=== PATIENT | female | born 1940 | race Two or more races ===

== ENCOUNTER → 2016-05-12 | Outpatient (CLI) | payer OTHER ==
[~2016-05-12] MED LIST: ATEN-60 OR; OMEP20TA85 OR
== END | disposition home or self-care (01) ==
LOC: LAB 12:00
PROVIDERS: ATTEND Obstetrics & Gynecology
DX: N85.00 Endometrial hyperplasia, unspecified (principal)

== ENCOUNTER → 2016-10-31 | Outpatient (CLI) | payer OTHER ==
[2016-10-31 08:58] LABS: Basophils # (auto) 0 uL; Basophils % (auto) 0.4 % (0.0-2.0); CONDITION Y; Eosinophils # (auto) 0.2 uL; Eosinophils % (auto) 2.3 % (0.0-7.0); Hematocrit 37.3 % (36.0-46.0); Hemoglobin 12.6 g/dL (12.2-16.2); Lymphocytes # (auto) 2.4 uL; Lymphocytes % (auto) 27.8 % (10.0-50.0); Mean Corpuscular Hemoglobin 28.8 pg (28.0-32.0); Mean Corpuscular Hgb Conc. 33.8 g/dL (32.0-36.0); Mean Corpuscular Volume 85.2 fL (80.0-100.0); Mean Platelet Volume 7.7 fL (7.4-10.4); Monocytes # (auto) 0.6 uL; Monocytes % (auto) 6.6 % (0.0-12.0); Neutrophils # (auto) 5.5 uL; Neutrophils % (auto) 62.9 % (37.0-80.0); Platelet Count (auto) 350 10^3/uL (140-450); Red Cell Distribution Width 13.6 % (11.6-16.0); White Blood Cell 8.8 10^3/uL (4.4-10.8)
[2016-10-31 09:06] LABS: Urine Bilirubin Negative (Negative); Urine Blood Negative /uL (Negative); Urine Color Yellow (Yellow); Urine Glucose Normal (Normal); Urine Ketone Negative (Negative); Urine Mucus FEW (None Seen); Urine Nitrite Negative (Negative); Urine RBC <1 /hpf (0 - 4); Urine Squamous Epithelial Cell FEW /hpf (<5); Urine Urobilinogen Normal (Negative); Urine pH 6.5 (5.0-8.0)
[2016-10-31 09:10] LABS: INR 0.92 (0.9-1.15); Partial Thromboplastin Time 26.8 sec (22.64-33.71)
[2016-10-31 09:33] LABS: Albumin 3.2 g/dL (3.4-5.0); BUN/Creatinine Ratio 20.7; Bilirubin, Total 0.3 mg/dL (0.2-1.0); Calcium 8.8 mg/dL (8.5-10.1); Potassium 4.3 mmol/L (3.5-5.1); Total Protein 7.5 g/dL (6.4-8.2)
== END | disposition home or self-care (01) ==
LOC: LAB 08:21
PROVIDERS: ATTEND Family Medicine
DX: Z01.810 Encounter for preprocedural cardiovascular examination (principal)
CPT/HCPCS: 36415; 80053; 81001; 85025; 85610; 85730

== ENCOUNTER 2017-01-13 06:09 | Day surgery (SDC) | payer OTHER ==
[2017-01-10 11:38] LABS: Basophils # (auto) 0.1 uL; Basophils % (auto) 0.8 % (0.0-2.0); Eosinophils # (auto) 0.2 uL; Eosinophils % (auto) 1.5 % (0.0-7.0); Hematocrit 38.7 % (36.0-46.0); Hemoglobin 13.1 g/dL (12.2-16.2); Lymphocytes # (auto) 2.6 uL; Mean Corpuscular Hemoglobin 29.8 pg (28.0-32.0); Mean Corpuscular Hgb Conc. 33.7 g/dL (32.0-36.0); Mean Corpuscular Volume 88.5 fL (80.0-100.0); Mean Platelet Volume 7.2 fL (6.9-10.8); Monocytes # (auto) 0.9 uL; Monocytes % (auto) 8.4 % (0.0-12.0); Neutrophils # (auto) 6.7 uL; Neutrophils % (auto) 64.3 % (37.0-80.0); Platelet Count (auto) 316 10^3/uL (140-450); Red Cell Distribution Width 14.7 % (11.8-14.3); White Blood Cell 10.4 10^3/uL (4.4-10.8)
[2017-01-10 11:52] LABS: Urine Bilirubin Negative (Negative); Urine Blood Negative /uL (Negative); Urine Color Yellow (Yellow); Urine Glucose Normal (Normal); Urine Ketone Negative (Negative); Urine Nitrite Negative (Negative); Urine Urobilinogen Normal (Negative); Urine pH 6.5 (5.0-8.0)
[2017-01-10 11:54] LABS: Albumin 3.4 g/dL (3.4-5.0); BUN/Creatinine Ratio 24.1; Bilirubin, Total 0.3 mg/dL (0.2-1.0); Potassium 4.1 mmol/L (3.5-5.1); Total Protein 8.1 g/dL (6.4-8.2)
[2017-01-10 11:55] LABS: INR 0.92 (0.9-1.15); Partial Thromboplastin Time 27.5 sec (22.64-33.71)
[~2017-01-13] VITALS: Ht 149.9 cm; Wt 74.4 kg
[~2017-01-13 06:09] MED LIST changes: +MIRA25TA OR
[2017-01-13] MEDS ORDERED: ceFAZolin 1GM/50ML D5W 50 ML IV ONE (06:30)
[2017-01-13] MEDS ORDERED: MIDAZOLAM HCL 1MG/1ML-2 ML VIAL ONE (07:09)
[2017-01-13] MEDS ORDERED: SODIUM CHLORIDE LOCK 20 ML ONE (07:09)
[2017-01-13] MEDS ORDERED: PROPOFOL 10 MG/ML 20 ML IV ONE (07:09)
[2017-01-13] MEDS ORDERED: ONDANSETRON HCL 4 MG/2 ML VIAL ONE (07:09)
[2017-01-13] MEDS ORDERED: fentaNYL CITRATE 100 MCG/2 ML VL ONE (07:09)
[2017-01-13] MEDS ORDERED: LACTATED RINGER'S 1,000 ML IV SCH (08:13)
[2017-01-13] MEDS ORDERED: KETOROLAC TROMETH 30 MG/ML 1ML VIAL IV ONE (08:15)
[2017-01-13] MEDS ORDERED: ONDANSETRON HCL 4 MG/2 ML VIAL IV PRN (08:15)
[2017-01-13] MEDS ORDERED: METOCLOPRAMIDE HCL 5MG/ml INJ 2ml VIAL IV ONE (08:15)
[2017-01-13] MEDS ORDERED: HYDROmorphone HCL 2 MG/ML VL IV PRN (08:15)
[2017-01-13 08:52] VITALS: BP 134/75
== END 2017-01-13 09:07 | disposition home or self-care (01) ==
LOC: SUR 06:09
PROVIDERS: ATTEND Obstetrics & Gynecology
DX: N84.0 Polyp of corpus uteri (principal); N85.00 Endometrial hyperplasia, unspecified; K21.9 Gastro-esophageal reflux disease without esophagitis; M19.90 Unspecified osteoarthritis, unspecified site; K27.9 Peptic ulcer, site unspecified, unspecified as acute or chronic, without hemorrhage or perforation; E66.9 Obesity, unspecified; I12.9 Hypertensive chronic kidney disease with stage 1 through stage 4 chronic kidney disease, or unspecified chronic kidney disease; N18.9 Chronic kidney disease, unspecified; I25.10 Atherosclerotic heart disease of native coronary artery without angina pectoris
CPT/HCPCS: 36415; 58558; 80053; 81003; 84702; 85025; 85610; 85730; 86850; 86900; 86901; J0690; J2250; J2405; J2704; J3010

== ENCOUNTER → 2017-02-14 | Outpatient (CLI) | payer OTHER ==
[2017-02-14 08:51] LABS: Basophils # (auto) 0.1 uL; Eosinophils # (auto) 0.1 uL; Eosinophils % (auto) 1.3 % (0.0-7.0); Hematocrit 39.5 % (36.0-46.0); Hemoglobin 13.1 g/dL (12.2-16.2); Lymphocytes # (auto) 2.3 uL; Lymphocytes % (auto) 22.7 % (10.0-50.0); Mean Corpuscular Hemoglobin 29.5 pg (28.0-32.0); Mean Corpuscular Hgb Conc. 33.1 g/dL (32.0-36.0); Mean Corpuscular Volume 89.1 fL (80.0-100.0); Mean Platelet Volume 7.4 fL (6.9-10.8); Monocytes # (auto) 0.7 uL; Monocytes % (auto) 6.7 % (0.0-12.0); Neutrophils # (auto) 6.8 uL; Neutrophils % (auto) 68.3 % (37.0-80.0); Nucleated Red Blood Cells % 0.1 %; Platelet Count (auto) 317 10^3/uL (140-450); Red Cell Distribution Width 13.6 % (11.8-14.3); White Blood Cell 9.9 10^3/uL (4.4-10.8)
[2017-02-14 09:07] LABS: Urine Bilirubin Negative (Negative); Urine Blood Negative /uL (Negative); Urine Color Yellow (Yellow); Urine Glucose Normal (Normal); Urine Ketone Negative (Negative); Urine Mucus FEW (None Seen); Urine Nitrite Negative (Negative); Urine RBC 1 /hpf (0 - 4); Urine Squamous Epithelial Cell MANY /hpf (<5); Urine Urobilinogen Normal (Negative)
[2017-02-14 09:22] LABS: Albumin 3.3 g/dL (3.4-5.0); BUN/Creatinine Ratio 17.2; Bilirubin, Total 0.4 mg/dL (0.2-1.0); Calcium 9.1 mg/dL (8.5-10.1)
[2017-02-14 09:29] LABS: Temperature: 22.7 C (20.0-25.0)
== END | disposition home or self-care (01) ==
LOC: LAB 08:22
PROVIDERS: ATTEND Family Medicine
DX: I10 Essential (primary) hypertension (principal); E78.00 Pure hypercholesterolemia, unspecified; E55.9 Vitamin D deficiency, unspecified; R79.89 Other specified abnormal findings of blood chemistry
CPT/HCPCS: 36415; 80053; 80061; 81001; 82306; 82607; 82746; 83036; 84443; 85025

== ENCOUNTER → 2017-11-16 | Outpatient (CLI) | payer OTHER ==
[~2017-11-16] MED LIST changes: +ACET-1156 PO; +ACET-6 PO; +CALC500C3 PO; +DOCU-94 PO; +ENO40SY SC
== END | disposition home or self-care (01) ==
LOC: XYW 09:05
PROVIDERS: ATTEND Family Medicine
DX: Z01.818 Encounter for other preprocedural examination (principal); I08.1 Rheumatic disorders of both mitral and tricuspid valves; M17.9 Osteoarthritis of knee, unspecified; I10 Essential (primary) hypertension; K21.9 Gastro-esophageal reflux disease without esophagitis; Z88.8 Allergy status to other drugs, medicaments and biological substances
CPT/HCPCS: 93306

== ENCOUNTER 2017-12-04 06:56 | Inpatient (IN) | payer OTHER ==
[2017-12-01 10:29] LABS: Basophils # (auto) 0.1 uL; Eosinophils # (auto) 0.2 uL; Eosinophils % (auto) 2.7 % (0.0-7.0); Hematocrit 39.2 % (36.0-46.0); Hemoglobin 12.8 g/dL (12.2-16.2); Lymphocytes # (auto) 2.5 uL; Lymphocytes % (auto) 29.5 % (10.0-50.0); Mean Corpuscular Hemoglobin 28.6 pg (28.0-32.0); Mean Corpuscular Hgb Conc. 32.6 g/dL (32.0-36.0); Mean Corpuscular Volume 87.7 fL (80.0-100.0); Monocytes # (auto) 0.8 uL; Monocytes % (auto) 9.3 % (0.0-12.0); Neutrophils % (auto) 57.5 % (37.0-80.0); Platelet Count (auto) 298 10^3/uL (140-450); Red Blood Cells 4.47 10^6/uL (4.0-5.20); Red Cell Distribution Width 13.5 % (11.8-14.3); White Blood Cell 8.6 10^3/uL (4.4-10.8)
[2017-12-01 10:46] LABS: Urine Bacteria FEW /hpf (None Seen); Urine Blood Negative /uL (Negative); Urine Specific Gravity 1.003 (1.001-1.035); Urine WBC 1 /hpf (0 - 5)
[2017-12-01 10:49] LABS: INR 0.9 (0.9-1.15); Partial Thromboplastin Time 27.6 sec (23.78-33.04); Prothrombin Time 9.7 sec (9.27-12.13)
[2017-12-01 12:10] LABS: Albumin 3.4 g/dL (3.4-5.0); BUN/Creatinine Ratio 18.8; Bilirubin, Total 0.3 mg/dL (0.2-1.0); Calcium 8.9 mg/dL (8.5-10.1); Total Protein 8.1 g/dL (6.4-8.2)
[~2017-12-04] VITALS: Ht 172.7 cm; Wt 95.9 kg
[~2017-12-04 06:56] MED LIST changes: -ACET-1156 PO; -DOCU-94 PO; -ENO40SY SC; -MIRA25TA OR; -OMEP20TA85 OR
[2017-12-04] MEDS ORDERED: TRANEXAMIC ACID 20 ML ONE (06:58)
[2017-12-04] MEDS ORDERED: BUPIVACAINE W/ EPINEPH 0.25% INJ 50ML MDV ONE (07:08)
[2017-12-04] MEDS ORDERED: MORPHINE SULF(PF) 0.5MG/ML 10ML VIAL ONE ×2 (07:11→08:05)
[2017-12-04] MEDS ORDERED: KETOROLAC TROMETH 30 MG/ML 1ML VIAL ONE (07:12)
[2017-12-04] MEDS ORDERED: VANCOMYCIN HCL 1000 MG VL ONE (07:14)
[2017-12-04] MEDS ORDERED: ACETAMINOPHEN IV 1000 MG/100ML (10MG/ML) IV ONE (07:45)
[2017-12-04] MEDS ORDERED: PREGABALIN CAPSULE 75 MG CAP PO ONE (07:45)
[2017-12-04] MEDS ORDERED: ceFAZolin 1GM 2 GM in D5W 5% 100 ML IV ONE (07:45)
[2017-12-04] MEDS ORDERED: CELECOXIB 100 MG CAP PO ONE (07:45)
[2017-12-04] MEDS ORDERED: ceFAZolin 1GM/50ML 100 ML IV ONE (07:57)
[2017-12-04] MEDS ORDERED: LIDOCAINE W/ EPINEPHRINE 2% INJ 20ML VIAL ONE (08:02)
[2017-12-04] MEDS ORDERED: ROPIVACAINE 0.5% (5MG/ML) 20ML AMPULE IJ ONE (08:02)
[2017-12-04] MEDS ORDERED: LIDOCAINE 1% HCL (LOCAL ANESTH.) INJ 20ML MDV ONE (08:03)
[2017-12-04] MEDS ORDERED: MIDAZOLAM HCL 1MG/1ML-2 ML VIAL ONE ×4 (08:05→12:12)
[2017-12-04] MEDS ORDERED: TETRACAINE 1% INJ 2 ML VIAL IJ ONE (08:28)
[2017-12-04] MEDS ORDERED: SODIUM CHLORIDE LOCK 10 ML ONE (08:35)
[2017-12-04] MEDS ORDERED: ePHEDrine SULFATE 50 MG/ML AMP ONE (08:35)
[2017-12-04] MEDS ORDERED: PROPOFOL 10 MG/ML 20 ML IV ONE ×3 (08:38→12:11)
[2017-12-04] MEDS ORDERED: diphenhdrAMINE HCL 50 MG/1 ML VL ONE (08:50)
[2017-12-04] MEDS ORDERED: METOCLOPRAMIDE HCL 5MG/ml INJ 2ml VIAL ONE ×2 (09:06→12:25)
[2017-12-04] MEDS ORDERED: MORPHINE SULFATE 4 MG/ML SYR/VIAL IV PRN (09:45)
[2017-12-04] MEDS ORDERED: ePHEDrine SULFATE 50 MG/ML AMP IV PRN (09:45)
[2017-12-04] MEDS ORDERED: diphenhdrAMINE HCL 50 MG/1 ML VL IV PRN (09:45)
[2017-12-04] MEDS ORDERED: NALOXONE HCL 0.4 MG/ML VIAL IV PRN ×2 (09:45)
[2017-12-04] MEDS ORDERED: ONDANSETRON HCL 4 MG/2 ML VIAL IV ONE (09:45)
[2017-12-04] MEDS ORDERED: ONDANSETRON HCL 4 MG/2 ML VIAL IV PRN ×2 (09:45→11:00)
[2017-12-04] MEDS ORDERED: CALCIUM CARB 500 MG CHEW TAB PO PRN (11:00)
[2017-12-04] MEDS ORDERED: MORPHINE SULF INJ 2 MG/ML SYRINGE 1ML IV PRN (11:00)
[2017-12-04] MEDS ORDERED: BISACODYL 5 MG EC TAB PO PRN (11:00)
[2017-12-04] MEDS ORDERED: ACETAMINOPHEN 325 MG TAB PO PRN (11:00)
[2017-12-04] MEDS ORDERED: NITROGLYCERIN 0.4 MG SL TAB SL PRN (11:00)
[2017-12-04] MEDS ORDERED: traMADol HCL 50 MG TAB PO PRN (11:15)
[2017-12-04] MEDS ORDERED: LIDOCAINE 1% (LOCAL ANESTH.) PF 5ml SDV ONE (12:11)
[2017-12-04 13:00] VITALS: BP 101/54
[2017-12-04] MEDS: ceFAZolin 1GM/50ML 50 ML IV SCH ×3 (13:09→22:57)
[2017-12-04] MEDS: LACTATED RINGER'S 1,000 ML IV SCH ×2 (13:09→20:58)
[2017-12-04] MEDS: SODIUM CHLOR 0.9% PF (SALINE LOCK) 10ML VIAL/SYR IV SCH ×2 (13:09→21:31)
[2017-12-04 13:11] VITALS: BP 110/58
[2017-12-04 14:30] VITALS: BP 112/57
[2017-12-04 17:00] VITALS: BP 114/69
[2017-12-04] MEDS: HYDROcodone-ACET 5/325MG TAB PO PRN (18:36)
[2017-12-04 20:00] VITALS: BP 127/68
[2017-12-04] MEDS: DOCUSATE SOD 100 MG CAP PO SCH (21:31)
[2017-12-04 21:55] VITALS: BP 127/68
[2017-12-05 05:00] VITALS: BP 110/70
[2017-12-05] MEDS: HYDROcodone-ACET 5/325MG TAB PO PRN ×2 (05:37→14:21)
[2017-12-05] MEDS: SODIUM CHLOR 0.9% PF (SALINE LOCK) 10ML VIAL/SYR IV SCH ×3 (06:06→21:21)
[2017-12-05 07:56] LABS: Hematocrit 34.6 % (36.0-46.0); Hemoglobin 11.6 g/dL (12.2-16.2)
[2017-12-05 08:09] LABS: Albumin 2.7 g/dL (3.4-5.0); BUN/Creatinine Ratio 18.6; Bilirubin, Total 0.5 mg/dL (0.2-1.0); Calcium 7.8 mg/dL (8.5-10.1); Potassium 4.3 mmol/L (3.5-5.1); Total Protein 6.5 g/dL (6.4-8.2)
[2017-12-05] MEDS: MORPHINE SULFATE 4 MG/ML SYR/VIAL IV PRN ×3 (08:32→19:49)
[2017-12-05 09:00] VITALS: BP 130/61
[2017-12-05] MEDS: ATENOLOL 25 MG TAB PO SCH (09:26)
[2017-12-05] MEDS: DOCUSATE SOD 100 MG CAP PO SCH ×2 (09:26→21:21)
[2017-12-05] MEDS: ENOXAPARIN SOD 40 MG/0.4 ML SYRINGE SC SCH (09:27)
[2017-12-05] MEDS ORDERED: ATENOLOL 25 MG OR SCH (10:00)
[2017-12-05 12:27] VITALS: BP 116/70
[2017-12-05 17:00] VITALS: BP 108/64
[2017-12-05] MEDS: KETOROLAC TROMETH 30 MG/ML 1ML VIAL IV PRN (18:18)
[2017-12-05 20:00] VITALS: BP 126/102
[2017-12-05 22:00] VITALS: BP_SYST 117; BP_SYST 126; BP_DIAS 102; BP_DIAS 57
[2017-12-06 05:01] VITALS: BP 135/87
[2017-12-06] MEDS: SODIUM CHLOR 0.9% PF (SALINE LOCK) 10ML VIAL/SYR IV SCH ×3 (06:01→21:54)
[2017-12-06] MEDS: ENOXAPARIN SOD 40 MG/0.4 ML SYRINGE SC SCH (09:32)
[2017-12-06] MEDS: ATENOLOL 25 MG TAB PO SCH (09:32)
[2017-12-06] MEDS: KETOROLAC TROMETH 30 MG/ML 1ML VIAL IV PRN ×3 (09:32→21:54)
[2017-12-06] MEDS: DOCUSATE SOD 100 MG CAP PO SCH ×2 (09:32→21:54)
[2017-12-06 09:42] VITALS: BP 155/85
[2017-12-06 11:08] LABS: Hematocrit 31.8 % (36.0-46.0); Hemoglobin 10.4 g/dL (12.2-16.2)
[2017-12-06 13:00] VITALS: BP 159/70
[2017-12-06 17:00] VITALS: BP 149/70
[2017-12-06] MEDS ORDERED: TEMAZEPAM 15 MG CAP PO ONE (22:30)
[2017-12-06 23:22] VITALS: BP 145/65
[2017-12-07] VITALS (7 sets, daily range): BP systolic 130–153; BP diastolic 62–84
[2017-12-07] MEDS: SODIUM CHLOR 0.9% PF (SALINE LOCK) 10ML VIAL/SYR IV SCH ×3 (06:04→22:08)
[2017-12-07 08:33] LABS: Hematocrit 32.7 % (36.0-46.0); Hemoglobin 10.7 g/dL (12.2-16.2)
[2017-12-07] MEDS: DOCUSATE SOD 100 MG CAP PO SCH ×2 (10:00→22:08)
[2017-12-07] MEDS: ATENOLOL 25 MG TAB PO SCH (10:00)
[2017-12-07] MEDS: ENOXAPARIN SOD 40 MG/0.4 ML SYRINGE SC SCH (10:00)
[2017-12-07] MEDS: MORPHINE SULFATE 4 MG/ML SYR/VIAL IV PRN (10:59)
[2017-12-07] MEDS: HYDROcodone-ACET 5/325MG TAB PO PRN (22:08)
[2017-12-08] MEDS ORDERED: fentaNYL CITRATE 100 MCG/2 ML VL ONE (01:31)
[2017-12-08] MEDS ORDERED: MORPHINE SULF(PF) 0.5MG/ML 10ML VIAL ONE (01:31)
[2017-12-08] MEDS ORDERED: PHENYLEPHRINE HCL 10 MG/ML VL ONE (01:36)
[2017-12-08] MEDS ORDERED: METOCLOPRAMIDE HCL 5MG/ml INJ 2ml VIAL ONE (01:36)
[2017-12-08] MEDS ORDERED: ePHEDrine SULFATE 50 MG/ML AMP ONE (01:36)
[2017-12-08] MEDS ORDERED: ONDANSETRON HCL 4 MG/2 ML VIAL ONE (01:36)
[2017-12-08] MEDS ORDERED: OXYTOCIN 10 UNIT/ML 10ML VIAL ONE (01:36)
[2017-12-08] MEDS ORDERED: ceFAZolin 1GM VL ONE (01:36)
[2017-12-08] MEDS ORDERED: EPINEPHrine HCL 1 MG/1 ML AMP ONE (01:43)
[2017-12-08 05:00] VITALS: BP 140/69
[2017-12-08] MEDS: SODIUM CHLOR 0.9% PF (SALINE LOCK) 10ML VIAL/SYR IV SCH ×2 (06:00→13:29)
[2017-12-08 09:00] VITALS: BP 158/75
[2017-12-08] MEDS: ENOXAPARIN SOD 40 MG/0.4 ML SYRINGE SC SCH (09:45)
[2017-12-08] MEDS: HYDROcodone-ACET 5/325MG TAB PO PRN (09:45)
[2017-12-08] MEDS: DOCUSATE SOD 100 MG CAP PO SCH (09:46)
[2017-12-08] MEDS: ATENOLOL 25 MG TAB PO SCH (09:46)
[2017-12-08 10:38] VITALS: BP 101/73
[2017-12-08 13:00] VITALS: BP 150/70
[2017-12-08] MEDS: MORPHINE SULFATE 4 MG/ML SYR/VIAL IV PRN (13:29)
[2017-12-08 17:10] VITALS: BP 121/81
== END 2017-12-08 18:10 | disposition home health service (06) | DRG 470 ==
LOC: SUR 06:56 → WEST WING 06:57
PROVIDERS: ADMIT Orthopaedic Surgery Adult Reconstructive Orthopaedic Surgery; ATTEND Internal Medicine
PROC: 8E0YXBZ Computer Assisted Procedure of Lower Extremity (ICD-10-PCS; 2017-12-04)
PROC: 0SRC0J9 Replacement of Right Knee Joint with Synthetic Substitute, Cemented, Open Approach (ICD-10-PCS; principal; 2017-12-04 08:08)
DX: M17.11 Unilateral primary osteoarthritis, right knee (principal); M81.0 Age-related osteoporosis without current pathological fracture; K21.9 Gastro-esophageal reflux disease without esophagitis; E66.9 Obesity, unspecified; I12.9 Hypertensive chronic kidney disease with stage 1 through stage 4 chronic kidney disease, or unspecified chronic kidney disease; I73.9 Peripheral vascular disease, unspecified; N18.2 Chronic kidney disease, stage 2 (mild); G47.33 Obstructive sleep apnea (adult) (pediatric); G89.29 Other chronic pain; Z90.49 Acquired absence of other specified parts of digestive tract; Z98.49 Cataract extraction status, unspecified eye; Z88.8 Allergy status to other drugs, medicaments and biological substances; Z68.32 Body mass index [BMI] 32.0-32.9, adult
CPT/HCPCS: 36415; 73562; 80053; 81001; 85014; 85018; 85025; 85610; 85730; 86850; 86900; 86901; 97110; 97116; 97163; 97530; C1713; J0131; J0171; J0690; J1885; J2001; J2250; J2405; J2590; J2704; J7060

== ENCOUNTER 2017-12-13 11:39 | Inpatient (IN) | payer OTHER ==
[~2017-12-13] VITALS: Ht 142.2 cm; Wt 71.7 kg
[~2017-12-13 11:39] MED LIST changes: -ACET-6 PO
[2017-12-13 12:32] LABS: Basophils # (auto) 0.1 uL; Basophils % (auto) 0.8 % (0.0-2.0); Eosinophils # (auto) 0.6 uL; Hematocrit 30.3 % (36.0-46.0); Hemoglobin 10.2 g/dL (12.2-16.2); Lymphocytes # (auto) 1.9 uL; Lymphocytes % (auto) 17.8 % (10.0-50.0); Mean Corpuscular Hemoglobin 29.4 pg (28.0-32.0); Mean Corpuscular Hgb Conc. 33.5 g/dL (32.0-36.0); Mean Corpuscular Volume 87.6 fL (80.0-100.0); Monocytes # (auto) 0.9 uL; Monocytes % (auto) 8.7 % (0.0-12.0); Neutrophils # (auto) 7.1 uL; Neutrophils % (auto) 66.7 % (37.0-80.0); Platelet Count (auto) 405 10^3/uL (140-450); Red Blood Cells 3.46 10^6/uL (4.0-5.20); White Blood Cell 10.6 10^3/uL (4.4-10.8)
[2017-12-13 12:56] LABS: Potassium 4.8 mmol/L (3.5-5.1); Sodium 133 mmol/L (136-145)
[2017-12-13 12:57] LABS: Alanine Aminotransferase 29 U/L (13-56); Albumin 2.8 g/dL (3.4-5.0); Alkaline Phosphatase 91 U/L (45-117); Anion Gap 7 (5-15); Aspartate Aminotransferase 21 U/L (15-37); BUN/Creatinine Ratio 17.7; Bilirubin, Total 0.4 mg/dL (0.2-1.0); Blood Urea Nitrogen 11 mg/dL (7-18); Calcium 8.1 mg/dL (8.5-10.1); Carbon Dioxide 28 mmol/L (21-32); Chloride 98 mmol/L (98-107); GFR African American 119 mL/min; GFR Non-African American 99 mL/min; Glucose 96 mg/dL (74-106); Magnesium 2.2 mg/dL (1.6-2.6); Total Protein 7.4 g/dL (6.4-8.2)
[2017-12-13] MEDS ORDERED: ASPirin 81 mg TAB PO ONE (15:30)
[2017-12-13 16:32] LABS: INR 0.91 (0.9-1.15); Partial Thromboplastin Time 27.7 sec (23.78-33.04); Prothrombin Time 9.8 sec (9.27-12.13)
[2017-12-13] MEDS ORDERED: IOHEXOL 350 MG/ML 100ML IJ ONE (17:19)
[2017-12-13 17:57] LABS: Urine Bacteria NONE SEEN /hpf (None Seen); Urine Blood Negative /uL (Negative); Urine Specific Gravity 1.005 (1.001-1.035); Urine WBC <1 /hpf (0 - 5)
[2017-12-13] MEDS ORDERED: DOCUSATE SOD 100 MG CAP PO PRN (20:30)
[2017-12-13] MEDS ORDERED: TEMAZEPAM 15 MG CAP PO PRN (20:30)
[2017-12-13] MEDS ORDERED: NITROGLYCERIN 0.4 MG SL TAB SL PRN (20:30)
[2017-12-13] MEDS ORDERED: MORPHINE SULF INJ 2 MG/ML SYRINGE 1ML IV PRN (20:30)
[2017-12-13] MEDS ORDERED: ONDANSETRON HCL 4 MG/2 ML VIAL IV PRN (20:30)
[2017-12-13] MEDS ORDERED: cloNIDine HCL 0.1 MG TAB PO PRN (20:45)
[2017-12-13] MEDS ORDERED: IBUPROFEN 600 MG TAB PO PRN (22:15)
[2017-12-13 22:25] VITALS: BP 147/67
[2017-12-13 23:30] VITALS: BP 147/67
[2017-12-13] MEDS: FAMOTIDINE 20 MG TAB PO SCH (23:36)
[2017-12-14 05:00] VITALS: BP 157/74
[2017-12-14 05:59] LABS: Basophils # (auto) 0.1 uL; Basophils % (auto) 0.6 % (0.0-2.0); Eosinophils # (auto) 0.6 uL; Eosinophils % (auto) 5.5 % (0.0-7.0); Hematocrit 31.3 % (36.0-46.0); Hemoglobin 10.6 g/dL (12.2-16.2); Lymphocytes % (auto) 19.2 % (10.0-50.0); Mean Corpuscular Hemoglobin 29.5 pg (28.0-32.0); Mean Corpuscular Hgb Conc. 33.8 g/dL (32.0-36.0); Mean Corpuscular Volume 87.3 fL (80.0-100.0); Monocytes # (auto) 0.8 uL; Monocytes % (auto) 8.1 % (0.0-12.0); Neutrophils # (auto) 6.8 uL; Neutrophils % (auto) 66.6 % (37.0-80.0); Platelet Count (auto) 421 10^3/uL (140-450); Red Blood Cells 3.59 10^6/uL (4.0-5.20); Red Cell Distribution Width 13.2 % (11.8-14.3); White Blood Cell 10.2 10^3/uL (4.4-10.8)
[2017-12-14 06:27] LABS: Albumin 2.8 g/dL (3.4-5.0); BUN/Creatinine Ratio 17.6; Bilirubin, Total 0.4 mg/dL (0.2-1.0); Calcium 8.2 mg/dL (8.5-10.1); Potassium 4.2 mmol/L (3.5-5.1); Total Protein 7.2 g/dL (6.4-8.2)
[2017-12-14] MEDS ORDERED: ACET-1156 PO (07:57)
[2017-12-14] MEDS ORDERED: DOCU-94 PO (07:57)
[2017-12-14] MEDS ORDERED: ENO40SY SC (07:58)
[2017-12-14 08:33] VITALS: BP 147/79
[2017-12-14] MEDS ORDERED: ASPirin 81 mg TAB PO SCH (10:00)
[2017-12-14] MEDS ORDERED: ATENOLOL 25 MG TAB PO SCH (10:00)
[2017-12-14] MEDS ORDERED: ENOXAPARIN SOD 40 MG/0.4 ML SYRINGE SC SCH (10:00)
[2017-12-14] MEDS: FAMOTIDINE 20 MG TAB PO SCH (10:16)
[2017-12-14] MEDS ORDERED: ATENOLOL 50 MG TAB PO ONE (11:45)
[2017-12-14] MEDS ORDERED: ASPirin 81 mg TAB PO ONE (11:45)
[2017-12-14 12:20] VITALS: BP_SYST 157
[2017-12-14 12:31] VITALS: BP 157/75
[2017-12-14 12:44] VITALS: BP 157/75
[2017-12-14 13:05] VITALS: BP 129/63
[2017-12-15] MEDS ORDERED: ASPirin 81 mg TAB PO SCH (10:00)
[2017-12-15] MEDS ORDERED: ATENOLOL 25 MG TAB PO SCH (10:00)
[2017-12-15] MEDS ORDERED: SPIRONOLACTONE 25 MG TAB PO SCH (10:00)
== END 2017-12-14 14:13 | disposition home or self-care (01) | DRG 291 ==
LOC: ER 11:41 → TELE 11:42 → TELE-WESTW 22:25
PROVIDERS: ADMIT Nurse Practitioner; ATTEND Nurse Practitioner
DX: I13.2 Hypertensive heart and chronic kidney disease with heart failure and with stage 5 chronic kidney disease, or end stage renal disease (principal); I50.41 Acute combined systolic (congestive) and diastolic (congestive) heart failure; N18.6 End stage renal disease; E11.22 Type 2 diabetes mellitus with diabetic chronic kidney disease; Z96.651 Presence of right artificial knee joint; F41.9 Anxiety disorder, unspecified; R07.89 Other chest pain; D64.9 Anemia, unspecified; I08.3 Combined rheumatic disorders of mitral, aortic and tricuspid valves; K21.9 Gastro-esophageal reflux disease without esophagitis; Z79.899 Other long term (current) drug therapy; Z88.5 Allergy status to narcotic agent; Z88.8 Allergy status to other drugs, medicaments and biological substances; Z82.49 Family history of ischemic heart disease and other diseases of the circulatory system; Z90.49 Acquired absence of other specified parts of digestive tract
CPT/HCPCS: 36415; 71046; 71275; 80053; 81001; 83735; 83880; 84443; 84484; 85025; 85379; 85610; 85730; 87081; 93005; 93970; 94761; 96372

== ENCOUNTER → 2018-01-30 | Outpatient (CLI) | payer OTHER ==
[~2018-01-30] MED LIST changes: +ACET-1156 PO; +DOCU-94 PO; +ENO40SY SC
[2018-01-30 10:05] LABS: Cholesterol 186 mg/dL (< 200); HDL Cholesterol 40 mg/dL (40-59); LDL Cholesterol 133 mg/dL (< 100); Triglycerides 181 mg/dL (< 150)
== END | disposition home or self-care (01) ==
LOC: LAB 08:39
PROVIDERS: ATTEND Internal Medicine
DX: I10 Essential (primary) hypertension (principal); K21.9 Gastro-esophageal reflux disease without esophagitis
CPT/HCPCS: 36415; 80061; 82306; 83036; 84443

== ENCOUNTER → 2018-05-09 | Outpatient (CLI) | payer OTHER | END | disposition home or self-care (01) | LOC: LAB 07:50 | PROVIDERS: ATTEND Internal Medicine | DX: E11.9 Type 2 diabetes mellitus without complications (principal); I10 Essential (primary) hypertension | CPT/HCPCS: 36415; 83036 ==

== ENCOUNTER → 2018-08-08 | Outpatient (CLI) | payer OTHER ==
[2018-08-08 09:10] LABS: Cholesterol 192 mg/dL (< 200)
[2018-08-08 09:12] LABS: HDL Cholesterol 53 mg/dL (40-59); LDL Cholesterol 128 mg/dL (< 100); Triglycerides 111 mg/dL (< 150)
== END | disposition home or self-care (01) ==
LOC: LAB 08:15
PROVIDERS: ATTEND Internal Medicine
DX: E11.9 Type 2 diabetes mellitus without complications (principal)
CPT/HCPCS: 36415; 80061

== ENCOUNTER → 2018-10-12 | Outpatient (CLI) | payer OTHER | END | disposition home or self-care (01) | LOC: LAB 08:01 | PROVIDERS: ATTEND Internal Medicine | DX: E78.5 Hyperlipidemia, unspecified (principal); I12.0 Hypertensive chronic kidney disease with stage 5 chronic kidney disease or end stage renal disease; E11.22 Type 2 diabetes mellitus with diabetic chronic kidney disease; N18.6 End stage renal disease | CPT/HCPCS: 36415; 82043; 82306; 83036 ==

== ENCOUNTER → 2018-10-16 | Outpatient (CLI) | payer OTHER | END | disposition home or self-care (01) | LOC: LAB 15:49 | PROVIDERS: ATTEND Internal Medicine | DX: I11.0 Hypertensive heart disease with heart failure (principal); I50.9 Heart failure, unspecified | CPT/HCPCS: 83880 ==

== ENCOUNTER → 2018-10-23 | Outpatient (CLI) | payer OTHER ==
[2018-10-23 09:16] LABS: Anion Gap 9 (5-15); Blood Urea Nitrogen 12 mg/dL (7-18); Calcium 8.6 mg/dL (8.5-10.1); Carbon Dioxide 27 mmol/L (21-32); Chloride 104 mmol/L (98-107); Glucose 100 mg/dL (74-106); Potassium 4.3 mmol/L (3.5-5.1); Sodium 140 mmol/L (136-145)
[2018-10-23 09:18] LABS: BUN/Creatinine Ratio 17.9; GFR African American 109 mL/min; GFR Non-African American 90 mL/min
== END | disposition home or self-care (01) ==
LOC: LAB 07:56
PROVIDERS: ATTEND Internal Medicine
DX: I11.0 Hypertensive heart disease with heart failure (principal); I50.9 Heart failure, unspecified
CPT/HCPCS: 36415; 80048

== ENCOUNTER → 2019-01-15 | Outpatient (CLI) | payer OTHER ==
[2019-01-15 09:42] LABS: Albumin 3.2 g/dL (3.4-5.0); Calcium 8.7 mg/dL (8.5-10.1); Potassium 4.4 mmol/L (3.5-5.1)
[2019-01-15 09:46] LABS: BUN/Creatinine Ratio 18.8; Bilirubin, Total 0.4 mg/dL (0.2-1.0); Total Protein 7.6 g/dL (6.4-8.2)
== END | disposition home or self-care (01) ==
LOC: LAB 08:19
PROVIDERS: ATTEND Internal Medicine
DX: E78.5 Hyperlipidemia, unspecified (principal); E11.22 Type 2 diabetes mellitus with diabetic chronic kidney disease; I12.0 Hypertensive chronic kidney disease with stage 5 chronic kidney disease or end stage renal disease; N18.6 End stage renal disease
CPT/HCPCS: 36415; 80053; 80061

== ENCOUNTER → 2019-10-02 | Outpatient (CLI) | payer OTHER ==
[2019-10-02 08:36] LABS: Basophils # (auto) 0.1 10 ^3/uL (0-0.2); Basophils % (auto) 1.3 % (0.0-2.0); Eosinophils # (auto) 0.3 10 ^3/uL (0-0.8); Eosinophils % (auto) 3.6 % (0.0-7.0); Hemoglobin 13.1 g/dL (12.2-16.2); Lymphocytes # (auto) 2.1 10 ^3/uL (0.4-5.4); Lymphocytes % (auto) 25.7 % (10.0-50.0); Mean Corpuscular Hemoglobin 28.2 pg (28.0-32.0); Mean Corpuscular Hgb Conc. 32.8 g/dL (32.0-36.0); Mean Corpuscular Volume 86.2 fL (80.0-100.0); Monocytes # (auto) 0.7 10 ^3/uL (0-1.3); Monocytes % (auto) 8.5 % (0.0-12.0); Neutrophils # (auto) 4.9 10 ^3/uL (1.6-8.6); Neutrophils % (auto) 60.9 % (37.0-80.0); Nucleated Red Blood Cells % 0.1 %; Platelet Count (auto) 319 10^3/uL (140-450); Red Blood Cells 4.64 10^6/uL (4.0-5.20); Red Cell Distribution Width 13.8 % (11.8-14.3); White Blood Cell 8.1 10^3/uL (4.4-10.8)
[2019-10-02 08:51] LABS: Calcium 8.9 mg/dL (8.5-10.1); Potassium 4.4 mmol/L (3.5-5.1)
[2019-10-02 08:54] LABS: BUN/Creatinine Ratio 21.5
== END | disposition home or self-care (01) ==
LOC: LAB 08:01
PROVIDERS: ATTEND Internal Medicine
DX: E11.9 Type 2 diabetes mellitus without complications (principal); E78.5 Hyperlipidemia, unspecified; R60.9 Edema, unspecified
CPT/HCPCS: 36415; 80048; 83036; 83880; 85025

== ENCOUNTER → 2019-10-31 | Outpatient (CLI) | payer OTHER | END | disposition home or self-care (01) | LOC: XYW 10:44 | PROVIDERS: ATTEND Internal Medicine | DX: I08.3 Combined rheumatic disorders of mitral, aortic and tricuspid valves (principal) | CPT/HCPCS: 93306 ==

== ENCOUNTER → 2020-01-01 | Outpatient (CLI) | payer OTHER ==
[2020-01-01 09:04] LABS: Cholesterol 164 mg/dL (< 200); HDL Cholesterol 40 mg/dL (40-59); LDL Cholesterol 115 mg/dL (< 100); Triglycerides 132 mg/dL (< 150)
== END | disposition home or self-care (01) ==
LOC: LAB 07:57
PROVIDERS: ATTEND Internal Medicine
DX: E11.9 Type 2 diabetes mellitus without complications (principal); E78.5 Hyperlipidemia, unspecified
CPT/HCPCS: 36415; 80061; 82043; 84443

== ENCOUNTER 2020-03-04 18:22 | Emergency (ER) | payer OTHER ==
[~2020-03-04] VITALS: Ht 149.9 cm; Wt 77.1 kg
[2020-03-04 23:47] VITALS: BP 166/75
[2020-03-05] MEDS ORDERED: HYDROcodone-ACET 5/325MG TAB PO ONE (01:15)
[2020-03-06] MEDS ORDERED: IBUP600T27 PO (23:14)
[2020-03-06] MEDS ORDERED: ASPI81CH43 PO (23:14)
[2020-03-06] MEDS ORDERED: METO25TA93 PO (23:14)
[2020-03-06] MEDS ORDERED: ATOR20TA50 PO (23:14)
== END 2020-03-05 01:37 | disposition home or self-care (01) ==
LOC: ER 18:22
DX: S42.291A Other displaced fracture of upper end of right humerus, initial encounter for closed fracture (principal); S52.125A Nondisplaced fracture of head of left radius, initial encounter for closed fracture; K21.9 Gastro-esophageal reflux disease without esophagitis; I10 Essential (primary) hypertension; Z88.6 Allergy status to analgesic agent; Z88.8 Allergy status to other drugs, medicaments and biological substances; X50.1XXA Overexertion from prolonged static or awkward postures, initial encounter; Y93.89 Activity, other specified; Y99.8 Other external cause status; Y92.89 Other specified places as the place of occurrence of the external cause
CPT/HCPCS: 73030; 73070; 93005

== ENCOUNTER → 2020-04-06 | Outpatient (CLI) | payer OTHER ==
[~2020-04-06] MED LIST changes: +ASPI81CH43 PO; -ATEN-60 OR; +ATOR20TA50 PO; -CALC500C3 PO; -DOCU-94 PO; -ENO40SY SC; +IBUP600T27 PO; +METO25TA93 PO
[2020-04-06 09:14] LABS: Albumin 3.1 g/dL (3.4-5.0); Bilirubin, Direct 0.2 mg/dL (0-0.2); Bilirubin, Total 0.3 mg/dL (0.2-1.0); Total Protein 7.6 g/dL (6.4-8.2)
== END | disposition home or self-care (01) ==
LOC: LAB 07:57
PROVIDERS: ATTEND Internal Medicine
DX: E11.9 Type 2 diabetes mellitus without complications (principal)
CPT/HCPCS: 36415; 80061; 80076; 83036

== ENCOUNTER → 2020-06-17 | Outpatient (CLI) | payer OTHER ==
[~2020-06-17] VITALS: Ht 144.8 cm; Wt 72.6 kg
[~2020-06-17] MED LIST changes: +ADENOSINE 61 MG in GIVE UN-DILUTED 0 ML IV STA
== END | disposition home or self-care (01) ==
LOC: XY 08:17
PROVIDERS: ATTEND Internal Medicine
DX: R07.9 Chest pain, unspecified (principal)
CPT/HCPCS: 78452; 93017; A9500; J0153

== ENCOUNTER → 2020-06-23 | Outpatient (CLI) | payer OTHER ==
[~2020-06-23] MED LIST changes: -ADENOSINE 61 MG in GIVE UN-DILUTED 0 ML IV STA
== END | disposition home or self-care (01) ==
LOC: XY 08:42
PROVIDERS: ATTEND Internal Medicine
DX: I65.23 Occlusion and stenosis of bilateral carotid arteries (principal)
CPT/HCPCS: 93886

== ENCOUNTER → 2020-07-16 | Outpatient (CLI) | payer OTHER ==
[2020-07-16 08:14] LABS: Basophils # (auto) 0.1 10 ^3/uL (0-0.2); Basophils % (auto) 0.9 % (0.0-2.0); Eosinophils # (auto) 0.3 10 ^3/uL (0-0.8); Eosinophils % (auto) 3.8 % (0.0-7.0); Hematocrit 36.2 % (36.0-46.0); Lymphocytes # (auto) 2.1 10 ^3/uL (0.4-5.4); Lymphocytes % (auto) 28.2 % (10.0-50.0); Mean Corpuscular Hemoglobin 27.5 pg (28.0-32.0); Mean Corpuscular Hgb Conc. 33.3 g/dL (32.0-36.0); Mean Corpuscular Volume 82.8 fL (80.0-100.0); Monocytes # (auto) 0.6 10 ^3/uL (0-1.3); Monocytes % (auto) 8.5 % (0.0-12.0); Neutrophils # (auto) 4.4 10 ^3/uL (1.6-8.6); Neutrophils % (auto) 58.6 % (37.0-80.0); Nucleated Red Blood Cells % 0.1 %; Platelet Count (auto) 281 10^3/uL (140-450); Red Blood Cells 4.37 10^6/uL (4.0-5.20); Red Cell Distribution Width 14.8 % (11.8-14.3); White Blood Cell 7.6 10^3/uL (4.4-10.8)
[2020-07-16 08:48] LABS: Albumin 3.4 g/dL (3.4-5.0); Potassium 4.6 mmol/L (3.5-5.1)
[2020-07-16 08:53] LABS: Bilirubin, Total 0.4 mg/dL (0.2-1.0); Total Protein 7.5 g/dL (6.4-8.2)
[2020-07-16 08:58] LABS: Free T4 (Free Thyroxine) 1.18 ng/dL (0.89-1.76)
[2020-07-16 08:59] LABS: Free T3 3.23 pg/mL (2.3-4.2); T3 Total 1.21 ng/mL (0.60-1.81)
== END | disposition home or self-care (01) ==
LOC: LAB 07:43
PROVIDERS: ATTEND Internal Medicine
DX: I10 Essential (primary) hypertension (principal); D64.9 Anemia, unspecified
CPT/HCPCS: 36415; 80053; 84439; 84443; 84480; 84481; 85025

== ENCOUNTER → 2021-03-10 | Outpatient (CLI) | payer OTHER | END | disposition home or self-care (01) | LOC: LAB 11:18 | PROVIDERS: ATTEND Internal Medicine | DX: E11.9 Type 2 diabetes mellitus without complications (principal); E78.5 Hyperlipidemia, unspecified | CPT/HCPCS: 82270 ==

== ENCOUNTER → 2021-03-22 | Outpatient (CLI) | payer OTHER ==
[2021-03-22 09:22] LABS: Albumin 3.3 g/dL (3.4-5.0); Bilirubin, Direct 0.1 mg/dL (0-0.2); Bilirubin, Total 0.4 mg/dL (0.2-1.0)
== END | disposition home or self-care (01) ==
LOC: LAB 08:11
PROVIDERS: ATTEND Internal Medicine
DX: E78.5 Hyperlipidemia, unspecified (principal)
CPT/HCPCS: 36415; 80076

== ENCOUNTER → 2021-06-01 | Outpatient (CLI) | payer OTHER ==
[2021-06-01 13:05] LABS: Albumin 3.3 g/dL (3.4-5.0); Bilirubin, Direct 0.1 mg/dL (0-0.2); Bilirubin, Total 0.4 mg/dL (0.2-1.0); Total Protein 7.2 g/dL (6.4-8.2)
== END | disposition home or self-care (01) ==
LOC: LAB 07:55
PROVIDERS: ATTEND Internal Medicine
DX: E11.9 Type 2 diabetes mellitus without complications (principal); E78.5 Hyperlipidemia, unspecified
CPT/HCPCS: 36415; 80061; 80076; 83036

== ENCOUNTER → 2021-06-03 | Outpatient (CLI) | payer OTHER | END | disposition home or self-care (01) | LOC: XY 08:56 | PROVIDERS: ATTEND Internal Medicine | DX: I73.9 Peripheral vascular disease, unspecified (principal); I87.2 Venous insufficiency (chronic) (peripheral) | CPT/HCPCS: 93925 ==

== ENCOUNTER 2021-09-08 07:06 | Inpatient (IN) | payer OTHER ==
[2021-09-06 10:38] LABS: Basophils # (auto) 0.1 10 ^3/uL (0-0.2); Eosinophils # (auto) 0.3 10 ^3/uL (0-0.8); Eosinophils % (auto) 3.2 % (0.0-7.0); Hematocrit 36.8 % (36.0-46.0); Hemoglobin 12.3 g/dL (12.2-16.2); Lymphocytes # (auto) 1.9 10 ^3/uL (0.4-5.4); Mean Corpuscular Hemoglobin 28.6 pg (28.0-32.0); Mean Corpuscular Hgb Conc. 33.5 g/dL (32.0-36.0); Mean Corpuscular Volume 85.3 fL (80.0-100.0); Monocytes # (auto) 0.8 10 ^3/uL (0-1.3); Monocytes % (auto) 9.5 % (0.0-12.0); Neutrophils # (auto) 5.2 10 ^3/uL (1.6-8.6); Neutrophils % (auto) 63.3 % (37.0-80.0); Nucleated Red Blood Cells % 0.1 %; Red Blood Cells 4.31 10^6/uL (4.0-5.20); Red Cell Distribution Width 13.5 % (11.8-14.3); White Blood Cell 8.3 10^3/uL (4.4-10.8)
[2021-09-06 10:50] LABS: INR 0.99 (0.9-1.15); Partial Thromboplastin Time 28.5 sec (23.6-33.0)
[2021-09-06 11:05] LABS: Albumin 3.5 g/dL (3.4-5.0); Calcium 8.8 mg/dL (8.5-10.1); Potassium 4.3 mmol/L (3.5-5.1)
[2021-09-06 11:09] LABS: BUN/Creatinine Ratio 23.3; Bilirubin, Total 0.3 mg/dL (0.2-1.0); Total Protein 7.8 g/dL (6.4-8.2)
[2021-09-08] VITALS (11 sets, daily range): BP systolic 91–138; BP diastolic 43–78
[~2021-09-08] VITALS: Ht 139.7 cm; Wt 76.1 kg
[~2021-09-08 07:06] MED LIST changes: -ACET-1156 PO; +ASPI1TAB19 PO; -ASPI81CH43 PO; -ATOR20TA50 PO; +ATOR40TA52 PO; -IBUP600T27 PO; +LOSA25TA38 PO
[2021-09-08] MEDS ORDERED: HEPARIN IN NS 1000Units/500mL 1,500 ML ONE (07:32)
[2021-09-08] MEDS ORDERED: LIDOCAINE 2%HCL (LOCAL ANESTH.) INJ 10ml MDV ONE (07:32)
[2021-09-08] MEDS ORDERED: IODIXANOL 320MG/ML 100ML BTL IV ONE (07:42)
[2021-09-08] MEDS ORDERED: ANGIOMAX 250 MG VIAL IV ONE (08:06)
[2021-09-08] MEDS ORDERED: SODIUM CHL 0.9% 50 ML ONE (08:07)
[2021-09-08] MEDS ORDERED: fentaNYL CITRATE 100 MCG/2 ML VL ONE (08:07)
[2021-09-08] MEDS ORDERED: MIDAZOLAM HCL 2MG/2ML 2ml VIAL (1mg/ml) ONE (08:07)
[2021-09-08] MEDS ORDERED: hydrALAZINE HCL 20 MG/ML VL ONE (09:10)
[2021-09-08] MEDS ORDERED: VERAPAMIL 2.5MG/ML INJ 2ML VIAL IV ONE (09:21)
[2021-09-08] MEDS ORDERED: MORPHINE SULFATE INJ 2 MG/ml SYRG IV PRN (10:00)
[2021-09-08] MEDS ORDERED: NITROGLYCERIN 0.4 MG SL TAB SL PRN (10:00)
[2021-09-08] MEDS ORDERED: traMADol HCL 50 MG TAB PO PRN (13:15)
[2021-09-08] MEDS: SODIUM CHLOR 0.9% PF (SALINE LOCK) 10ML VIAL/SYR IV SCH ×2 (14:11→21:53)
[2021-09-08] MEDS ORDERED: ATORVASTATIN 20 MG TAB PO SCH (22:00)
[2021-09-09 03:46] LABS: Urine Bacteria FEW /hpf (None Seen); Urine Blood Negative /uL (Negative); Urine Mucus FEW (None Seen); Urine Specific Gravity 1.034 (1.001-1.035); Urine WBC 12 /hpf (0 - 5)
[2021-09-09 05:26] VITALS: BP 136/56
[2021-09-09 06:07] LABS: Basophils # (auto) 0.1 10 ^3/uL (0-0.2); Basophils % (auto) 0.7 % (0.0-2.0); Eosinophils # (auto) 0.2 10 ^3/uL (0-0.8); Eosinophils % (auto) 1.7 % (0.0-7.0); Hematocrit 35.7 % (36.0-46.0); Hemoglobin 11.9 g/dL (12.2-16.2); Lymphocytes # (auto) 1.9 10 ^3/uL (0.4-5.4); Lymphocytes % (auto) 19.5 % (10.0-50.0); Mean Corpuscular Hemoglobin 28.5 pg (28.0-32.0); Mean Corpuscular Hgb Conc. 33.2 g/dL (32.0-36.0); Mean Corpuscular Volume 85.9 fL (80.0-100.0); Monocytes # (auto) 0.8 10 ^3/uL (0-1.3); Monocytes % (auto) 8.2 % (0.0-12.0); Neutrophils # (auto) 6.7 10 ^3/uL (1.6-8.6); Neutrophils % (auto) 69.9 % (37.0-80.0); Nucleated Red Blood Cells % 0.1 %; Red Blood Cells 4.16 10^6/uL (4.0-5.20); Red Cell Distribution Width 13.4 % (11.8-14.3); White Blood Cell 9.6 10^3/uL (4.4-10.8)
[2021-09-09] MEDS: SODIUM CHLOR 0.9% PF (SALINE LOCK) 10ML VIAL/SYR IV SCH (06:08)
[2021-09-09 06:46] LABS: Calcium 8.5 mg/dL (8.5-10.1); Potassium 4.3 mmol/L (3.5-5.1)
[2021-09-09 09:00] VITALS: BP 141/69
[2021-09-09] MEDS ORDERED: ASPirin 81 mg TAB PO SCH (10:00)
[2021-09-09] MEDS ORDERED: CILO100T PO (10:29)
== END 2021-09-09 12:04 | disposition home or self-care (01) | DRG 272 ==
LOC: CATH 07:06 → OVERFLOW 09:58 → CENTRAL 17:31
PROVIDERS: ADMIT Internal Medicine; ATTEND Internal Medicine
PROC: 047N3ZZ Dilation of Left Popliteal Artery, Percutaneous Approach (ICD-10-PCS; principal; 2021-09-08)
PROC: 04CK3ZZ Extirpation of Matter from Right Femoral Artery, Percutaneous Approach (ICD-10-PCS; 2021-09-08)
PROC: 047M3ZZ Dilation of Right Popliteal Artery, Percutaneous Approach (ICD-10-PCS; 2021-09-08)
PROC: 047K3ZZ Dilation of Right Femoral Artery, Percutaneous Approach (ICD-10-PCS; 2021-09-08)
PROC: 04CN3ZZ Extirpation of Matter from Left Popliteal Artery, Percutaneous Approach (ICD-10-PCS; 2021-09-08)
PROC: 04CM3ZZ Extirpation of Matter from Right Popliteal Artery, Percutaneous Approach (ICD-10-PCS; 2021-09-08)
PROC: B41GYZZ Fluoroscopy of Left Lower Extremity Arteries using Other Contrast (ICD-10-PCS; 2021-09-08)
PROC: B41FYZZ Fluoroscopy of Right Lower Extremity Arteries using Other Contrast (ICD-10-PCS; 2021-09-08)
DX: I73.9 Peripheral vascular disease, unspecified (principal); E78.5 Hyperlipidemia, unspecified; I10 Essential (primary) hypertension; M19.90 Unspecified osteoarthritis, unspecified site; Z20.822 Contact with and (suspected) exposure to COVID-19; E66.9 Obesity, unspecified; Z88.5 Allergy status to narcotic agent; Z88.7 Allergy status to serum and vaccine; Z88.8 Allergy status to other drugs, medicaments and biological substances
CPT/HCPCS: 36415; 80048; 80053; 81001; 85025; 85610; 85730; 99152; 99153; C1724; G0378; J2001; J2250; Q9967

== ENCOUNTER → 2021-09-29 | Outpatient (CLI) | payer OTHER ==
[~2021-09-29] MED LIST changes: +CILO100T PO
[2021-09-29 09:44] LABS: Albumin 3.2 g/dL (3.4-5.0); Bilirubin, Direct 0.1 mg/dL (0-0.2)
[2021-09-29 09:47] LABS: Bilirubin, Total 0.4 mg/dL (0.2-1.0); Total Protein 7.3 g/dL (6.4-8.2)
== END | disposition home or self-care (01) ==
LOC: LAB 08:22
PROVIDERS: ATTEND Internal Medicine
DX: E78.5 Hyperlipidemia, unspecified (principal)
CPT/HCPCS: 36415; 80076

== ENCOUNTER → 2021-12-30 | Outpatient (CLI) | payer OTHER ==
[2021-12-30 09:51] LABS: Cholesterol 196 mg/dL (< 200); HDL Cholesterol 43 mg/dL (40-59); LDL Cholesterol 131 mg/dL (< 100); Triglycerides 169 mg/dL (< 150)
== END | disposition home or self-care (01) ==
LOC: LAB 08:42
PROVIDERS: ATTEND Internal Medicine
DX: Z00.00 Encounter for general adult medical examination without abnormal findings (principal)
CPT/HCPCS: 36415; 80061; 83036

== ENCOUNTER → 2022-02-04 | Outpatient (CLI) | payer OTHER ==
[2022-02-04 09:00] LABS: Albumin 3.2 g/dL (3.4-5.0); Calcium 8.7 mg/dL (8.5-10.1); Potassium 4.3 mmol/L (3.5-5.1)
[2022-02-04 09:06] LABS: BUN/Creatinine Ratio 24.6; Bilirubin, Total 0.5 mg/dL (0.2-1.0); Total Protein 7.2 g/dL (6.4-8.2)
== END | disposition home or self-care (01) ==
LOC: LAB 08:11
PROVIDERS: ATTEND Internal Medicine
DX: E11.9 Type 2 diabetes mellitus without complications (principal); E78.5 Hyperlipidemia, unspecified
CPT/HCPCS: 36415; 80053; 80061; 83036

== ENCOUNTER → 2022-05-09 | Outpatient (CLI) | payer OTHER ==
[2022-05-09 09:07] LABS: Cholesterol 134 mg/dL (< 200); HDL Cholesterol 46 mg/dL (40-59); LDL Cholesterol 80 mg/dL (< 100); Triglycerides 115 mg/dL (< 150)
== END | disposition home or self-care (01) ==
LOC: LAB 08:12
PROVIDERS: ATTEND Internal Medicine
DX: E78.5 Hyperlipidemia, unspecified (principal)
CPT/HCPCS: 36415; 80061

== ENCOUNTER → 2022-08-03 | Outpatient (CLI) | payer OTHER ==
[2022-08-03 08:39] LABS: Cholesterol 197 mg/dL (< 200); Triglycerides 146 mg/dL (< 150)
[2022-08-03 08:41] LABS: HDL Cholesterol 44 mg/dL (40-59); LDL Cholesterol 132 mg/dL (< 100)
== END | disposition home or self-care (01) ==
LOC: LAB 07:58
PROVIDERS: ATTEND Internal Medicine
DX: Z00.00 Encounter for general adult medical examination without abnormal findings (principal); R73.03 Prediabetes; E78.5 Hyperlipidemia, unspecified
CPT/HCPCS: 36415; 80061; 83036

== ENCOUNTER → 2022-08-18 | Outpatient (CLI) | payer OTHER | END | disposition home or self-care (01) | LOC: XYW 09:16 | PROVIDERS: ATTEND Internal Medicine | DX: I65.23 Occlusion and stenosis of bilateral carotid arteries (principal); I70.92 Chronic total occlusion of artery of the extremities | CPT/HCPCS: 93886 ==

== ENCOUNTER → 2022-08-22 | Outpatient (CLI) | payer OTHER | END | disposition home or self-care (01) | LOC: UNDOADMOB 07:45 → OVERFLOW 07:45 → EDSTATUS 07:46 → XYW 07:47 | PROVIDERS: ATTEND Internal Medicine | DX: I08.1 Rheumatic disorders of both mitral and tricuspid valves (principal) | CPT/HCPCS: 93306 ==

== ENCOUNTER → 2022-10-06 | Outpatient (CLI) | payer OTHER ==
[~2022-10-06] MED LIST changes: +LOSA25TA15 PO; -LOSA25TA38 PO
[2022-10-06 08:36] LABS: Cholesterol 180 mg/dL (< 200)
[2022-10-06 08:39] LABS: HDL Cholesterol 42 mg/dL (40-59); LDL Cholesterol 122 mg/dL (< 100); Triglycerides 110 mg/dL (< 150)
== END | disposition home or self-care (01) ==
LOC: LAB 07:45
PROVIDERS: ATTEND Internal Medicine
DX: E11.9 Type 2 diabetes mellitus without complications (principal)
CPT/HCPCS: 36415; 80061

== ENCOUNTER → 2022-10-17 | Outpatient (CLI) | payer OTHER ==
[~2022-10-17] VITALS: Ht 149.9 cm; Wt 76.7 kg
[~2022-10-17] MED LIST changes: +ADENOSINE 64 MG in GIVE UN-DILUTED 0 ML IV ONE; +ADENOSINE 90 MG/30 ML INJ IV ONE
== END | disposition home or self-care (01) ==
LOC: Rad HDHVI 10:06
PROVIDERS: ATTEND Internal Medicine Cardiovascular Disease
DX: Z01.810 Encounter for preprocedural cardiovascular examination (principal); I11.0 Hypertensive heart disease with heart failure; I50.33 Acute on chronic diastolic (congestive) heart failure; I73.9 Peripheral vascular disease, unspecified; E78.00 Pure hypercholesterolemia, unspecified
CPT/HCPCS: 78452; 93005; 96374; 96375; A9500; J0153

== ENCOUNTER → 2022-11-07 | Outpatient (CLI) | payer OTHER ==
[~2022-11-07] MED LIST changes: -ADENOSINE 64 MG in GIVE UN-DILUTED 0 ML IV ONE; -ADENOSINE 90 MG/30 ML INJ IV ONE
== END | disposition home or self-care (01) ==
LOC: Rad HDHVI 14:41
PROVIDERS: ATTEND Internal Medicine Cardiovascular Disease
DX: I73.9 Peripheral vascular disease, unspecified (principal)
CPT/HCPCS: 93925

== ENCOUNTER → 2022-11-25 | Outpatient (CLI) | payer OTHER ==
[2022-11-25 09:44] LABS: Alanine Aminotransferase 19 U/L (13-56); Albumin 3.3 g/dL (3.4-5.0); Alkaline Phosphatase 80 U/L (45-117); Aspartate Aminotransferase 12 U/L (15-37); Bilirubin, Direct < 0.1 mg/dL (0-0.2); Bilirubin, Total 0.3 mg/dL (0.2-1.0); Total Protein 7.6 g/dL (6.4-8.2)
== END | disposition home or self-care (01) ==
LOC: LAB 08:16
PROVIDERS: ATTEND Internal Medicine
DX: E78.5 Hyperlipidemia, unspecified (principal)
CPT/HCPCS: 36415; 80076

== ENCOUNTER 2022-12-22 08:20 | Day surgery (SDC) | payer OTHER ==
[2022-12-21 12:49] LABS: Basophils # (auto) 0.1 10 ^3/uL (0-0.2); Basophils % (auto) 0.9 % (0.0-2.0); Eosinophils # (auto) 0.2 10 ^3/uL (0-0.8); Eosinophils % (auto) 2.7 % (0.0-7.0); Hematocrit 36.2 % (36.0-46.0); Hemoglobin 11.9 g/dL (12.2-16.2); Lymphocytes # (auto) 2.3 10 ^3/uL (0.4-5.4); Lymphocytes % (auto) 26.1 % (10.0-50.0); Mean Corpuscular Hemoglobin 28.1 pg (28.0-32.0); Mean Corpuscular Volume 85.2 fL (80.0-100.0); Monocytes # (auto) 0.9 10 ^3/uL (0-1.3); Monocytes % (auto) 9.9 % (0.0-12.0); Neutrophils # (auto) 5.3 10 ^3/uL (1.6-8.6); Neutrophils % (auto) 60.4 % (37.0-80.0); Nucleated Red Blood Cells % 0.1 %; Red Blood Cells 4.24 10^6/uL (4.0-5.20); Red Cell Distribution Width 14.3 % (11.8-14.3); White Blood Cell 8.8 10^3/uL (4.4-10.8)
[2022-12-21 13:09] LABS: INR 1.02 (0.9-1.15); Partial Thromboplastin Time 31.6 SEC (24.5-34.5); Prothrombin Time 10.7 sec (9.3-11.8)
[2022-12-21 13:31] LABS: Chloride 102 mmol/L (98-107); Potassium 4.5 mmol/L (3.5-5.1); Sodium 136 mmol/L (136-145)
[2022-12-21 13:32] LABS: Calcium 9.2 mg/dL (8.5-10.1)
[2022-12-21 13:37] LABS: BUN/Creatinine Ratio 18.2 (10.0-20.0); Blood Urea Nitrogen 16 mg/dL (9-23); Glucose 107 mg/dL (74-106)
[2022-12-22] VITALS (8 sets, daily range): BP systolic 85–125; BP diastolic 50–63; PULSE 59–65; RESP 12–19; O2SAT 90–97
[~2022-12-22] VITALS: Ht 149.9 cm; Wt 78.0 kg
[~2022-12-22 08:20] MED LIST changes: +APIX2.5T PO; -ATOR40TA52 PO; +CALC500C3 PO; -CILO100T PO; +ROSU10TA16 PO
[2022-12-22] MEDS ORDERED: MIDAZOLAM HCL 2MG/2ML 2ml VIAL (1mg/ml) ONE (13:04)
[2022-12-22] MEDS ORDERED: ANGIOMAX 250 MG VIAL IV ONE (13:04)
[2022-12-22] MEDS ORDERED: SODIUM CHL 0.9% 0 ML ONE (13:04)
[2022-12-22] MEDS ORDERED: LIDOCAINE 2%HCL (LOCAL ANESTH.) INJ 20ML MDV ONE (13:04)
[2022-12-22] MEDS ORDERED: fentaNYL CITRATE 100 MCG/2 ML VL ONE (13:04)
== END 2022-12-22 16:15 | disposition home or self-care (01) ==
LOC: CATH 08:20
PROVIDERS: ATTEND Internal Medicine Cardiovascular Disease
DX: I73.9 Peripheral vascular disease, unspecified (principal); I10 Essential (primary) hypertension; L98.499 Non-pressure chronic ulcer of skin of other sites with unspecified severity
CPT/HCPCS: 36247; 36415; 75716; 80048; 85025; 85610; 85730; C1769; J1644; J2250; J3010; 99152; 99153

== ENCOUNTER → 2023-02-03 | Outpatient (CLI) | payer OTHER ==
[2023-02-03 08:35] LABS: Basophils # (auto) 0.1 10 ^3/uL (0-0.2); Basophils % (auto) 1.1 % (0.0-2.0); Eosinophils # (auto) 0.3 10 ^3/uL (0-0.8); Eosinophils % (auto) 4.1 % (0.0-7.0); Hematocrit 37.2 % (36.0-46.0); Hemoglobin 12.2 g/dL (12.2-16.2); Lymphocytes # (auto) 1.8 10 ^3/uL (0.4-5.4); Lymphocytes % (auto) 22.9 % (10.0-50.0); Mean Corpuscular Hemoglobin 28.3 pg (28.0-32.0); Mean Corpuscular Hgb Conc. 32.8 g/dL (32.0-36.0); Mean Corpuscular Volume 86.1 fL (80.0-100.0); Monocytes # (auto) 0.7 10 ^3/uL (0-1.3); Monocytes % (auto) 8.6 % (0.0-12.0); Neutrophils % (auto) 63.3 % (37.0-80.0); Red Blood Cells 4.32 10^6/uL (4.0-5.20); Red Cell Distribution Width 14.3 % (11.8-14.3); White Blood Cell 7.9 10^3/uL (4.4-10.8)
[2023-02-03 09:10] LABS: Alanine Aminotransferase 14 U/L (7-40); Alkaline Phosphatase 79 U/L (46-116); Anion Gap 4 (5-15); Aspartate Aminotransferase 14 U/L (13-40); BUN/Creatinine Ratio 17.9 (10.0-20.0); Blood Urea Nitrogen 12 mg/dL (9-23); Carbon Dioxide 29 mmol/L (20-30); Chloride 102 mmol/L (98-107); Glucose 104 mg/dL (74-106); LDL Cholesterol 120 mg/dL (< 100); Potassium 4.7 mmol/L (3.5-5.1); Sodium 135 mmol/L (136-145); Triglycerides 113 mg/dL (< 150)
[2023-02-03 09:11] LABS: Bilirubin, Total 0.5 mg/dL (0.2-1.0); Cholesterol 168 mg/dL (< 200); HDL Cholesterol 37 mg/dL (40-59); Total Protein 7.1 g/dL (5.7-8.2)
[2023-02-03 09:30] LABS: Creatinine, Urine 35.85 mg/dL (30.0-125.0)
[2023-02-03 09:32] LABS: Micro Albumin < 3.0 mg/L (<30.0)
== END | disposition home or self-care (01) ==
LOC: LAB 08:18
PROVIDERS: ATTEND Internal Medicine
DX: E11.9 Type 2 diabetes mellitus without complications (principal); E78.5 Hyperlipidemia, unspecified; D64.9 Anemia, unspecified
CPT/HCPCS: 36415; 80053; 80061; 82043; 82270; 82570; 85025

== ENCOUNTER → 2023-03-16 | Outpatient (CLI) | payer OTHER ==
[2023-03-16 09:42] LABS: Albumin 4.1 g/dL (3.2-4.8); Bilirubin, Direct 0.1 mg/dL (<0.3); Bilirubin, Total 0.4 mg/dL (0.2-1.0); Total Protein 7.1 g/dL (5.7-8.2)
== END | disposition home or self-care (01) ==
LOC: LAB 08:15
PROVIDERS: ATTEND Internal Medicine
DX: C50.911 Malignant neoplasm of unspecified site of right female breast (principal)
CPT/HCPCS: 36415; 80061; 80076

== ENCOUNTER → 2024-01-22 | Outpatient (CLI) | payer OTHER ==
[~2024-01-22] MED LIST changes: +LOSA-533 PO; -LOSA25TA15 PO
[2024-01-22 08:52] LABS: Albumin 4.1 g/dL (3.2-4.8); Bilirubin, Direct 0.1 mg/dL (<0.3); Bilirubin, Total 0.4 mg/dL (0.2-1.0); Total Protein 7.3 g/dL (5.7-8.2)
[2024-01-22 08:55] LABS: Erythrocyte Sedimentation Rate 25 mm/hr (0-20)
[2024-01-22 09:10] LABS: Uric Acid 6.3 mg/dL (3.1-7.8)
== END | disposition home or self-care (01) ==
LOC: LAB 07:26
PROVIDERS: ATTEND Internal Medicine
DX: M79.604 Pain in right leg (principal); M79.671 Pain in right foot; E78.5 Hyperlipidemia, unspecified
CPT/HCPCS: 36415; 80076; 84550; 85652; 86431

== ENCOUNTER → 2024-02-28 | Outpatient (CLI) | payer OTHER ==
[2024-02-28 08:56] LABS: Albumin 4.1 g/dL (3.2-4.8); Bilirubin, Direct 0.1 mg/dL (<0.3); Bilirubin, Total 0.4 mg/dL (0.2-1.0); Total Protein 7.6 g/dL (5.7-8.2)
== END | disposition home or self-care (01) ==
LOC: LAB 08:01
PROVIDERS: ATTEND Internal Medicine
DX: E78.5 Hyperlipidemia, unspecified (principal)
CPT/HCPCS: 36415; 80061; 80076

== ENCOUNTER → 2024-09-03 | Outpatient (CLI) | payer MEDICAID ==
[2024-09-03 08:38] LABS: Triglycerides 100 mg/dL (< 150)
[2024-09-03 08:39] LABS: LDL Cholesterol 119 mg/dL (< 100)
[2024-09-03 08:40] LABS: Cholesterol 167 mg/dL (< 200); HDL Cholesterol 43 mg/dL (40-59)
== END | disposition home or self-care (01) ==
LOC: LAB 07:40
PROVIDERS: ATTEND Internal Medicine
DX: E11.59 Type 2 diabetes mellitus with other circulatory complications (principal); E78.5 Hyperlipidemia, unspecified
CPT/HCPCS: 36415; 80061; 82306; 82607; 84443

== ENCOUNTER → 2024-12-06 | Outpatient (CLI) | payer MEDICAID ==
[2024-12-06 08:29] LABS: Hematocrit 38.2 % (36.0-46.0); Hemoglobin 12.7 g/dL (12.2-16.2); Mean Corpuscular Hemoglobin 28.7 pg (28.0-32.0); Mean Corpuscular Volume 86.3 fL (80.0-100.0); Nucleated Red Blood Cells % 0.1 %
== END | disposition home or self-care (01) ==
LOC: LAB 08:06
PROVIDERS: ATTEND Internal Medicine
DX: E11.9 Type 2 diabetes mellitus without complications (principal)
CPT/HCPCS: 36415; 83036; 85025

== ENCOUNTER → 2025-03-10 | Outpatient (CLI) | payer MEDICAID ==
[2025-03-10 09:10] LABS: Triglycerides 133 mg/dL (< 150)
[2025-03-10 09:11] LABS: Cholesterol 176 mg/dL (< 200); HDL Cholesterol 41 mg/dL (40-59)
== END | disposition home or self-care (01) ==
LOC: LAB 08:11
PROVIDERS: ATTEND Internal Medicine
DX: E11.9 Type 2 diabetes mellitus without complications (principal)
CPT/HCPCS: 36415; 80061; 83036